=== PATIENT | female | born 1960 | race Two or more races ===

== ENCOUNTER 2018-03-28 16:30 | Outpatient (AMBR) | payer BC, SELFPAY ==
--- NOTE | 2018-03-07 17:07 | PT.ODAYNRPT ---
PT Outpatient Daily Note Date of Service: March 07, 2018 OP Daily Note Visit Reasons: low back pain Outpatient Physical Therapy Treatment Date: 03/07/18 Subjective: Pt's back feels much better as well no tail bone pain lately. Pt mention that her legs feel a little weak. Objective: Please see flow chart for list of ther ex performed Assessment: tolerate exercises with minimal pain; slight imbalance today and cue to slow down with exercises Plan: Continue with PT Length of Time (minutes) of Treatment: 30 Minutes Office Procedures PT Procedures PT Date of Service: 03/07/18 Therapeutic Exercise 30 minutes: Yes
--- NOTE | 2018-03-13 17:06 | PT.ODAYNRPT ---
PT Outpatient Daily Note Date of Service: March 13, 2018 OP Daily Note Visit Reasons: low back pain Outpatient Physical Therapy Treatment Date: 03/13/18 Subjective: Pt mention that she was very sore after last treatment session. Pt notice that she is having less back pain. Objective: Please see flow chart for list of ther ex performed Assessment: tolerate exercises with minimal pain; no resistance added today. Plan: Continue with PT Length of Time (minutes) of Treatment: 30 Minutes Office Procedures PT Procedures PT Date of Service: 03/07/18 Therapeutic Exercise 30 minutes: Yes PT Procedures PT Date of Service: 03/13/18 Therapeutic Exercise 30 minutes: Yes
--- NOTE | 2018-03-21 17:05 | PT.ODAYNRPT ---
PT Outpatient Daily Note Date of Service: March 21, 2018 OP Daily Note Visit Reasons: low back pain Outpatient Physical Therapy Treatment Date: 03/21/18 Subjective: Pt's back and tail bone is hurting. Even though it's hurting Pt still feels better. Pt has had difficulty sleeping due to stress leading to some back pain. Objective: Please see flow chart for list of ther ex performed Assessment: perform a lot of hip exercises today with good tolerance. Pt seems fatigue and was pace slower today. Plan: Continue with PT Length of Time (minutes) of Treatment: 30 Minutes Office Procedures PT Procedures PT Date of Service: 03/21/18 Therapeutic Exercise 30 minutes: Yes PT Procedures PT Date of Service: 03/07/18 Therapeutic Exercise 30 minutes: Yes PT Procedures PT Date of Service: 03/13/18 Therapeutic Exercise 30 minutes: Yes
--- NOTE | 2018-03-28 17:01 | PT.ODAYNRPT ---
PT Outpatient Daily Note Date of Service: March 28, 2018 OP Daily Note Visit Reasons: low back pain Outpatient Physical Therapy Treatment Date: 03/28/18 Assessment: Pt came into therapy late. we started ont he sci-fit for 2 mins, however, Pt reports of being tired and prefers not to do any therapy today. Pt was not seen and advised to follow up on monday Office Procedures PT Procedures PT Date of Service: 03/21/18 Therapeutic Exercise 30 minutes: Yes PT Procedures PT Date of Service: 03/07/18 Therapeutic Exercise 30 minutes: Yes PT Procedures PT Date of Service: 03/13/18 Therapeutic Exercise 30 minutes: Yes
== END 2018-04-05 23:59 ==
PROVIDERS: Visit Provider Neurological Surgery
DX: M54.5 Low back pain (principal)
CPT/HCPCS: 97110

== ENCOUNTER 2024-09-27 06:40 | Emergency (ER) | payer OTHER, SELFPAY ==
[2024-09-27 06:41] VITALS: BMI 31.1
[2024-09-27 07:07] VITALS: BP 177/78; PULSE 92; RESP 17; TEMP 36.5; O2SAT 96
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
[2024-09-27] MEDS: CYCLObenzaPRINE 5 MG TABLET PO (07:43)
[2024-09-27] MEDS: IBUPROFEN TAB 400 MG TABLET 800 MG PO (07:44)
== END 2024-09-27 09:49 | disposition home or self-care (01) ==
PROVIDERS: Emergency Provider Emergency Medicine; PCP Family Medicine
DX: S39.012A Strain of muscle, fascia and tendon of lower back, initial encounter (principal); S10.93XA Contusion of unspecified part of neck, initial encounter; V89.2XXA Person injured in unspecified motor-vehicle accident, traffic, initial encounter
CPT/HCPCS: 72040; 72100; 99283; A9270

== ENCOUNTER → 2024-11-04 | Outpatient (CLI) | payer OTHER, SELFPAY ==
--- NOTE | 2024-11-04 11:30 | XR_ITS ---
Examination: Abdomen sonogram, Limited Date and time of exam: November 04, 2024 1138 hours INDICATIONS: Diagnosis chronic hepatitis C and fatty liver Technique: Real-time finch scale transabdominal sonographic images of the upper abdomen obtained. Findings: Normal gallbladder Normal common bile duct 0.2 cm Pancreatic head 2.7 cm Liver 14.2 cm fatty infiltration smooth contour no focal liver lesions Normal hepatopedal portal venous flow Patent IVC IMPRESSION: Normal gallbladder Liver normal size fatty liver no focal liver lesions
== END | disposition home or self-care (01) ==
PROVIDERS: PCP Family Medicine; Referring Provider Specialist; Visit Provider Specialist
DX: K76.0 Fatty (change of) liver, not elsewhere classified (principal)
CPT/HCPCS: 76705

== ENCOUNTER → 2024-12-11 | Outpatient (CLI) | payer OTHER, SELFPAY ==
--- NOTE | 2024-12-11 10:00 | XR_ITS ---
Examination: MRI lumbar spine without contrast Date and time of exam: December 11, 2024 1110 hours Comparison May 24, 2023 INDICATIONS: Low back pain one year with numbness in the left leg and left leg pain, chronic low back pain 30 years Technique: Multiple MRI axial and sagittal sections lumbar spine. Sagittal T2-weighted images, TR 3500, TE 118 T1 weighted transverse sections, TR 688 T8.5, T2-weighted sagittal sections T1 weighted sagittal sections TR 621, TE 30 T2 axial sections, TR 4, 190, TE 84. Findings: Transpedicular lumbar fusion L4-S1 generates very prominent magnetic susceptibility artifacts No lumbar fracture No spondylolisthesis L5-S1 no disc protrusion L4-L5 no disc protrusion L3-L4 foraminal disc bulges but no ganglionic compression L2-L3 moderate disc narrowing no focal disc protrusion L1-L2 no disc protrusion IMPRESSION: Transpedicular lumbar fusion L4-S1 with satisfactory alignment No significant acquired spinal stenosis
== END | disposition home or self-care (01) ==
PROVIDERS: PCP Family Medicine; Referring Provider Family Medicine; Visit Provider Family Medicine
DX: M43.27 Fusion of spine, lumbosacral region (principal)
CPT/HCPCS: 72148